=== PATIENT | male | born 1980 | race Caucasian/White ===

== ENCOUNTER 2018-07-07 10:40 | Emergency (ER) | payer SELFPAY, OTHER ==
[2018-07-07] MEDS: KETOROLAC 30 MG INJ IM (11:49)
[2018-07-07] MEDS: HYDROCODONE/APAP (5/325) TAB PO (11:50)
== END 2018-07-07 12:18 | disposition home or self-care (01) ==
LOC: FTE 10:40
DX: K08.89 Other specified disorders of teeth and supporting structures (principal)
CPT/HCPCS: 96372; 99284-25